=== PATIENT | male | born 1970 | race Caucasian/White ===

== ENCOUNTER 2016-12-23 06:24 | Day surgery (SDC) | payer OTHER ==
[~2016-12-23 06:24] MED LIST: LACTATED RINGERS 1,000 ML IV SCH
[2016-12-23] MEDS ORDERED: IV START KIT ONE (06:32)
[2016-12-23] MEDS ORDERED: PROPOFOL 20 ML IV ONE (06:58)
[2016-12-23 13:59] LABS: HELICOBACTER PYLORII DETECTION NEGATIVE (NEGATIVE)
--- NOTE | 2016-12-27 14:31 | SURGPATH ---
[facility] [address] [place] [id number] Patient Name: CHAPIS ESCOTO MR#: [id number] : 1970 Gender: M Specimen #: [id number] Collected: 12/23/2016 Received: 12/24/2016 Reported: 12/27/2016 Submitting Phys: DEMETRIS BUTLER Copy To Phys: ORTIZ FUENTES [facility] RAFIQ SADLER Clinical History / Pre-Operative Diagnosis: HEARTBURN; DYSPHAGIA; RULE OUT GASTRITIS AND ESOPHAGITIS Specimen Source / Surgical Procedure Performed: #1-ANTRAL BIOPSY; #2-ESOPHAGEAL BIOPSY AT 42 CM Interpretation: 1. STOMACH, ANTRUM, BIOPSY: - MILD CHRONIC NONATROPHIC ANTRAL GASTRITIS WITH FOCAL ACTIVITY - NO HELICOBACTER ORGANISMS SEEN ON IMMUNOSTAIN 2. ESOPHAGUS, 42 CM, BIOPSY: - ESOPHAGITIS WITH INCREASED INTRAEPITHELIAL EOSINOPHILS - SEE COMMENT Comment: On part 2, the differential diagnosis includes reflux esophagitis which is favored, versus eosinophilic esophagitis. Clinical and endoscopic correlation is required. Electronically Signed Out Emily Gordillo M.D. Gross Description: #1 The specimen is received in a formalin filled container labeled with the patient's name and "antral biopsy". Two castañeda biopsies are 0.1 and 0.4 cm. Totally embedded in cassette #1. #2 The specimen is received in a formalin filled container labeled with the patient's name and "esophageal biopsy at 42 cm". Two de luna biopsies are 0.4 and 0.5 cm. Totally embedded in cassette #2. Dayanna Irvin Microscopic Description: Part 1: Antral mucosa is seen with reactive foveolar hyperplasia. Mild chronic and active inflammation is seen in the lamina propria. A Helicobacter immunostain is negative for Helicobacter organisms. The controls stain properly. Part 2: Squamous mucosa shows increased intraepithelial eosinophils, basilar hyperplasia, and papillary elongation. There are up to 17 eosinophils per high power field. No columnar mucosa, intestinal metaplasia, or dysplasia is seen. (Analyte-specific reagents (ASR) are used in many laboratory tests necessary for standard medical care and generally do not require FDA approval. This test was developed and its performance characteristics determined by [facility]. It has not been cleared or approved by the U.[place]. Food and Drug Administration. [facility] is certified under the Clinical Laboratory Improvement Amendments of 1988 as qualified to perform high complexity clinical laboratory testing. All controls stain as expected.) 1: 44361, 15404 2: 99640 K29.30 K20.9
== END 2016-12-23 08:05 | disposition home or self-care (01) ==
LOC: SDC 06:24
PROVIDERS: ATTEND Internal Medicine Gastroenterology
PROC: 0D748ZZ Dilation of Esophagogastric Junction, Via Natural or Artificial Opening Endoscopic (ICD-10-PCS; principal; 2016-12-23)
PROC: 0DB58ZX Excision of Esophagus, Via Natural or Artificial Opening Endoscopic, Diagnostic (ICD-10-PCS; 2016-12-23)
PROC: 0DB68ZX Excision of Stomach, Via Natural or Artificial Opening Endoscopic, Diagnostic (ICD-10-PCS; 2016-12-23)
DX: K22.2 Esophageal obstruction (principal); K20.9 Esophagitis, unspecified; K29.50 Unspecified chronic gastritis without bleeding; K29.80 Duodenitis without bleeding; J45.909 Unspecified asthma, uncomplicated; K91.89 Other postprocedural complications and disorders of digestive system; K92.0 Hematemesis; K21.9 Gastro-esophageal reflux disease without esophagitis; I95.9 Hypotension, unspecified; Y84.8 Other medical procedures as the cause of abnormal reaction of the patient, or of later complication, without mention of misadventure at the time of the procedure
CPT/HCPCS: 43249; 43239; 83690; 85025; 80053; 87081; 71010; 86901; 86850 ×3; 96375 ×2; 99284 ×2; 96361; 96365; J0610; C9113; J2765; J2405; J7120; J7050; J7030 ×3

== ENCOUNTER 2016-12-23 13:24 | Emergency (ER) | payer OTHER ==
[2016-12-23] MEDS ORDERED: ONDANSETRON 4 MG/2ML 2 ML VIAL ONE (13:38)
[2016-12-23] MEDS ORDERED: SODIUM CHLORIDE 0.9% 1,000 ML ONE ×3 (13:38→15:45)
[2016-12-23] MEDS ORDERED: PANTOPRAZOLE SODIUM 40 MG VIAL IV ONE (13:45)
[2016-12-23 13:58] LABS: ABSOLUTE NEUTROPHIL COUNT 6.9 K/mm3 (1.8-7.7); BASO % 0.3 % (0.2-1.0); EOS # 0.1 (0.0-0.5); EOS % 1.2 % (0.9-2.9); HEMATOCRIT 34.1 % (32.0-52.0); HEMOGLOBIN 11.4 gm/l (14.0-18.0); IMM NEUT% 0.3 % (0-1); LYMPH % 20.6 % (15-45); MEAN CELL VOLUME 88.6 fl (80.0-94.0); MEAN CORPUSCULAR HEMOGLOBIN 29.6 pg (27.0-31.0); MEAN CORPUSCULAR HGB CONC 33.4 g/dl (33.0-37.0); MEAN PLATELET VOLUME 10.9 fl (7.4-10.4); MONO # 0.6 (0.0-0.8); MONO % 6.5 % (4-12); NEUT % 71.1 % (43-75); PLATELET COUNT 173 K/mm3 (130-400); RED CELL DISTRIBUTION WIDTH 13.2 % (11.5-14.5)
[2016-12-23 14:07] LABS: ALB/GLOB RATIO 2.3 (>1.0); ALBUMIN 3.5 gm/dL (3.5-5.7)
--- NOTE | 2016-12-23 14:13 | RAD ---
Exam: Portable chest COMPARISON: None INDICATION: Vomiting blood. Findings: A semierect AP portable view of the chest demonstrates a normal cardiac silhouette. Lungs are normally inflated. There is no focal airspace disease or pleural effusion. Bones of the chest wall within normal limits. IMPRESSION: No acute pulmonary process.
[2016-12-23] MEDS ORDERED: METOCLOPRAMIDE HCL 5 MG/ML 2ML VIAL ONE (14:58)
[2016-12-23] MEDS ORDERED: CALCIUM GLUCONATE 1,000 MG/10 ML VIAL ONE (16:08)
[2016-12-23] MEDS ORDERED: SODIUM CHLORIDE 0.9% 250 ML IV ONE (16:10)
== END 2016-12-23 17:40 | disposition home or self-care (01) ==
LOC: ED 13:24
DX: K91.89 Other postprocedural complications and disorders of digestive system (principal); K92.0 Hematemesis; K21.9 Gastro-esophageal reflux disease without esophagitis; I95.9 Hypotension, unspecified; Y84.8 Other medical procedures as the cause of abnormal reaction of the patient, or of later complication, without mention of misadventure at the time of the procedure
CPT/HCPCS: 83690; 85025; 80053; 71010; 86901; 86850 ×3; 96375 ×2; 99284 ×2; 96361; 96365; J0610; C9113; J2765; J2405; J7050; J7030 ×3